=== PATIENT | female | born 1995 | race Caucasian/White ===

== ENCOUNTER 2017-08-06 00:34 | Emergency (ER) | payer MEDICARE, MEDICAID ==
[2017-08-06] MEDS ORDERED: traZODone HCl 50 MG TAB ONE (00:57)
--- NOTE | 2017-08-06 08:16 | RAD ---
RADIGRAPH LEFT THIRD DIGIT THREE VIEWS: History: 22-year-old female with decreased range of motion and pain. FINDINGS: No fracture or dislocation. Joint spaces are maintained without erosions or osteophytes. No radiopaq ue foreign body or soft tissue calcification. No destructive osseous lesion. IMPRESSION: Negative. POS: [facility]
== END 2017-08-06 01:23 | disposition home or self-care (01) ==
LOC: ERS 00:34
DX: S60.032A Contusion of left middle finger without damage to nail, initial encounter (principal); E03.9 Hypothyroidism, unspecified; I10 Essential (primary) hypertension; F41.9 Anxiety disorder, unspecified; F32.9 Major depressive disorder, single episode, unspecified; Z76.0 Encounter for issue of repeat prescription; Z79.899 Other long term (current) drug therapy; X58.XXXA Exposure to other specified factors, initial encounter

== ENCOUNTER 2021-10-17 03:18 | Emergency (ER) | payer MEDICARE, MEDICAID ==
[2021-10-17 04:40] LABS: Pregnancy Test - Urine (BHCG) Negative (Negative); Pregu Control Background? CLEAR/WHITE (CLR/WHITE); Pregu Control Bar Appear? YES (CONTROL BAR); Specific Gravity 1.025 (1.002-1.036)
== END 2021-10-17 07:04 | disposition home or self-care (01) ==
LOC: ERS 03:18
DX: M54.50 Low back pain, unspecified (principal); I10 Essential (primary) hypertension; E03.9 Hypothyroidism, unspecified; D64.9 Anemia, unspecified
CPT/HCPCS: 74176; 81025

== ENCOUNTER 2023-01-22 15:10 | Emergency (ER) | payer MEDICARE, MEDICAID ==
[2023-01-22 15:50] LABS: BHCG - Serum Negative (NEGATIVE); Pregs Control Background? CLEAR/WHITE (CLR/WHITE); Pregs Control Bar Appear? YES (CONTROL BAR)
[2023-01-22 15:56] LABS: #Eosinphils 0.2 thou/uL (0.0-0.7); #Lymphocytes 2.4 thou/uL (1.20-3.40); #Monocytes 0.7 thou/uL (0.11-0.59); #Neutrophils 7.6 thou/uL (1.40-6.50); %Basophils 0.1 % (0.0-1.0); %Eosinophils 1.8 % (0.0-10.0); %Lymphocytes 22.2 % (21.0-51.0); %Monocytes 6.1 % (0.0-10.0); %Neutrophils 69.8 % (42.0-75.0); Hemoglobin 14.2 g/dL (12.0-16.0); Mean Corpuscular HGB CONC 35.2 g/dL (32.0-36.0); Mean Corpuscular Hemoglobin 31.9 pg (27.0-31.0); Mean Corpuscular Volume 90.8 fl (78.0-98.0); Mean Platelet Volume 7.2 fL (7.4-10.4); Platelet Count 234 10x3/uL (130-400); Red Blood Cell (RBC) Count 4.46 mill/uL (4.20-5.40); White Blood Cell (WBC) Count 10.8 10x3/uL (4.8-10.8)
[2023-01-22 16:06] LABS: Acetaminophen Less than 10.0 mcg/mL (10.0-30.0); Alcohol Less than 10 mg/dL (Less than 10); CK (CPK) 104 U/L (29-168); Salicylate Less than 8.0 mg/dL (15.0-30.0)
[2023-01-22 16:08] LABS: ALT (SGPT) 74 U/L (8-55); AST (SGOT) 67 U/L (5-34); Albumin 4.1 g/dL (3.5-5.0); Alkaline Phosphatase 91 U/L (40-110); Anion Gap 16 mmol/L (10-20); BUN (Urea Nitrogen) 8 mg/dL (7.0-18.7); Bilirubin, Total 0.2 mg/dL (0.2-1.2); Calc. Creatinine Clearance 0 mL/min (70-130); Calcium 9.7 mg/dL (7.8-10.44); Carbon Dioxide 23 mmol/L (22-29); Chloride 106 mmol/L (98-107); Estimated GFR 70; Globulin 2.9 g/dL (2.4-3.5); Glucose 109 mg/dL (70-105); Potassium 3.9 mmol/L (3.5-5.1); Sodium 141 mmol/L (136-145)
[2023-01-22 18:41] LABS: Bilirubin Negative (Negative); Blood, Urine 1+ (Negative); Clarity Turbid (Clear); Glucose, Urine (Dipstick) Normal (Negative); Ketone, Urine Negative (Negative); Leukocyte 500 Leu/uL (Negative); Nitrite Negative (Negative); Protein, Urine (Dipstick) Negative (Neg-Trace); Specific Gravity, Urine 1.015 (1.002-1.036); Urobilinogen Normal mg/dL (Less than 2); pH, Urine 5.5 (5.0-9.0)
[2023-01-22 18:42] LABS: Amphetamine Not Detected (NotDetected); Barbiturates Screen Not Detected (NotDetected); Benzodiazepine Screen Not Detected (NotDetected); Cocaine Metabolite Screen Not Detected (NotDetected); Methadone Not Detected (NotDetected); Methamphetamine Not Detected (NotDetected); Opiate Screen Not Detected (NotDetected); Oxycodone Screen Not Detected (NotDetected); Phencyclidine (PCP) Not Detected (NotDetected); THC/Cannabinoid Screen Not Detected (NotDetected); Tricyclic Screen Not Detected (NotDetected)
[2023-01-22 18:49] LABS: Bacteria/HPF 1+ HPF (None Seen); RBC/HPF 0-3 HPF (0-3); Squamous Epithelial 0-3 HPF (0-3); WBC/HPF 0-3 HPF (0-3)
[2023-01-22 19:01] LABS: Acetaminophen Less than 10.0 mcg/mL (10.0-30.0); Alcohol Less than 10 mg/dL (Less than 10); Salicylate Less than 8.0 mg/dL (15.0-30.0)
== END 2023-01-22 20:27 | disposition home or self-care (01) ==
LOC: ERS 15:10
DX: R45.851 Suicidal ideations (principal); I10 Essential (primary) hypertension; E03.9 Hypothyroidism, unspecified
CPT/HCPCS: 36415; 80053; 80306; 80307; 81003; 81015; 82550; 84703; 85025; 93005

== ENCOUNTER 2023-10-25 12:23 | Emergency (ER) | payer MEDICARE, MEDICAID | END 2023-10-25 13:42 | disposition home or self-care (01) | LOC: ERS 12:23 | DX: K08.89 Other specified disorders of teeth and supporting structures (principal); I10 Essential (primary) hypertension; E03.9 Hypothyroidism, unspecified | CPT/HCPCS: 99282 ==

== ENCOUNTER 2024-08-21 13:10 | Emergency (ER) | payer MEDICARE, MEDICAID ==
[2024-08-21] MEDS ORDERED: Meclizine HCl 25 MG TAB ONE (14:02)
[2024-08-21 14:09] LABS: #Basophils 0.04 10x3/uL (0.0-0.2); %Basophils 0.5 % (0.0-1.0); %Eosinophils 2.6 % (0.0-10.0); %Lymphocytes 25.8 % (21.0-51.0); %Monocytes 5.2 % (0.0-10.0); %Neutrophils 65.4 % (42.0-75.0); Hemoglobin 13.8 g/dL (12.0-16.0); Mean Corpuscular HGB CONC 33.7 g/dL (32.0-36.0); Mean Corpuscular Hemoglobin 29.7 pg (27.0-31.0); Mean Corpuscular Volume 88.4 fL (78.0-98.0); Mean Platelet Volume 9.3 fL (7.4-10.4); Platelet Count 222 10x3/uL (130-400); RBC Distribution Width 12.6 % (11.5-14.5); Red Blood Cell (RBC) Count 4.64 mill/uL (4.20-5.40)
[2024-08-21 14:16] LABS: BHCG - Serum Negative (NEGATIVE); Pregs Control Background? CLEAR/WHITE (CLR/WHITE); Pregs Control Bar Appear? YES (CONTROL BAR)
[2024-08-21 14:23] LABS: ALT (SGPT) 16 U/L (8-55); AST (SGOT) 15 U/L (5-34); Albumin 3.7 g/dL (3.5-5.0); Alkaline Phosphatase 73 U/L (40-110); Anion Gap 13 mmol/L (10-20); BUN (Urea Nitrogen) 12 mg/dL (7.0-18.7); Bilirubin, Total 0.4 mg/dL (0.2-1.2); Calc. Creatinine Clearance 0 mL/min (70-130); Calcium 9.3 mg/dL (7.8-10.44); Carbon Dioxide 24 mmol/L (22-29); Chloride 107 mmol/L (98-107); Estimated GFR 73; Globulin 3.2 g/dL (2.4-3.5); Glucose 124 mg/dL (70-105); Lipase 48 U/L (8-78); Potassium 3.8 mmol/L (3.5-5.1); Protein, Total 6.9 g/dL (6.0-8.3); Sodium 140 mmol/L (136-145)
[2024-08-21 14:29] LABS: Troponin I Less than 0.010 ng/mL (< 0.028)
[2024-08-21 14:59] LABS: Bilirubin Negative (Negative); Blood, Urine Trace (Negative); CAUTI Indications for Culture < 2yrs of age; Clarity Clear (Clear); Glucose, Urine (Dipstick) Normal (Negative); Ketone, Urine Negative (Negative); Leukocyte 500 Leu/uL (Negative); Nitrite Negative (Negative); Protein, Urine (Dipstick) Negative (Neg-Trace); RBC/HPF 0-3 HPF (0-3); Specific Gravity, Urine 1.012 (1.002-1.036); Urobilinogen Normal mg/dL (Less than 2); pH, Urine 6.5 (5.0-9.0)
[2024-08-21 15:00] LABS: Bacteria/HPF 1+ HPF (None Seen)
[2024-08-21 15:01] LABS: Urine Culture Reflex Yes Yes
[2024-08-21] MEDS ORDERED: cefTRIAXone (ROCEPHIN) 2 GM VIAL ONE (15:19)
[2024-08-21] MEDS ORDERED: Sodium Chloride 0.9% 100 ML ONE (15:19)
== END 2024-08-21 16:10 | disposition home or self-care (01) ==
LOC: ERS 13:10
DX: N39.0 Urinary tract infection, site not specified (principal); H81.13 Benign paroxysmal vertigo, bilateral; J10.1 Influenza due to other identified influenza virus with other respiratory manifestations; R29.700 NIHSS score 0; I10 Essential (primary) hypertension; E03.9 Hypothyroidism, unspecified; D64.9 Anemia, unspecified; Z55.6 Problems related to health literacy; Z79.899 Other long term (current) drug therapy
CPT/HCPCS: 71045; 80053; 81001; 83690; 84443; 84484; 84703; 85025; 87086; 87428; 93005; 96361; 96365; J0696

== ENCOUNTER 2025-06-14 14:10 | Emergency (ER) | payer MEDICAID, OTHER ==
[2025-06-14 15:49] LABS: CAUTI Indications for Culture Dysuria,urgency,freq; Glucose, Urine (Dipstick) Normal (Negative); Leukocyte 500 Leu/uL (Negative); Protein, Urine (Dipstick) 30 mg/dL (Neg-Trace); RBC/HPF 21-50 HPF (0-3); Specific Gravity, Urine 1.031 (1.002-1.036); WBC/HPF Greater than 50 HPF (0-3)
[2025-06-14] MEDS ORDERED: Ibuprofen 800 MG TAB ONE (15:51)
[2025-06-14 15:58] LABS: Bacteria/HPF 1+ HPF (None Seen)
[2025-06-14 15:59] LABS: Urine Culture Reflex Yes Yes
[2025-06-14 16:22] LABS: BHCG - Serum Negative (NEGATIVE); Pregs Control Background? CLEAR/WHITE (CLR/WHITE); Pregs Control Bar Appear? YES (CONTROL BAR)
[2025-06-14] MEDS ORDERED: Cephalexin 250 MG CAP ONE (16:44)
== END 2025-06-14 17:09 | disposition home or self-care (01) ==
LOC: ERS 14:10
DX: N39.0 Urinary tract infection, site not specified (principal); I10 Essential (primary) hypertension
CPT/HCPCS: 36415; 81001; 84703; 87086; 87480; 87510; 87660; 99283

== ENCOUNTER 2025-06-22 18:14 | Emergency (ER) | payer MEDICAID | END 2025-06-22 20:57 | disposition home or self-care (01) | LOC: ERS 18:14 | DX: H66.92 Otitis media, unspecified, left ear (principal); I10 Essential (primary) hypertension | CPT/HCPCS: 99282 ==